=== PATIENT | female | born 1985 | race Caucasian/White ===

== ENCOUNTER 2017-03-03 06:24 | Emergency (ER) | payer OTHER ==
[2017-03-03] MEDS ORDERED: HYDROCODONE/ACETAMINOPHEN 5/325MG TABLET ONE (07:05)
[2017-03-03] MEDS ORDERED: IBUPROFEN 800 MG TABLET ONE (07:05)
[2017-03-03] MEDS ORDERED: CLINDAMYCIN HCL 150 MG CAPSULE ONE (07:05)
[2017-03-03] MEDS ORDERED: PREDNISONE 20 MG TABLET PO ONE (07:15)
[2017-03-03] MEDS ORDERED: PREDNISONE 10 MG TABLET ONE (07:19)
== END 2017-03-03 07:33 | disposition home or self-care (01) ==
LOC: ED 06:24
DX: K04.7 Periapical abscess without sinus (principal); J45.909 Unspecified asthma, uncomplicated; F17.210 Nicotine dependence, cigarettes, uncomplicated
CPT/HCPCS: 99283 ×2; A9270 ×3; J7512